=== PATIENT | female | born 1995 | race Caucasian/White ===

== ENCOUNTER 2017-12-16 14:44 | Outpatient (CLI) | payer OTHER | END 2017-12-16 15:12 | disposition home or self-care (01) | LOC: LAB 14:44 | DX: N39.0 Urinary tract infection, site not specified (principal); R82.79 Other abnormal findings on microbiological examination of urine ==

== ENCOUNTER → 2017-12-16 | Outpatient (CLI) | payer OTHER ==
[~2017-12-16] VITALS: Ht 152.4 cm; Wt 59.0 kg
[~2017-12-16] MED LIST: ADVIL100 M1
== END | disposition home or self-care (01) ==
LOC: PPHC 13:33
DX: N39.0 Urinary tract infection, site not specified (principal)

== ENCOUNTER 2018-12-31 12:24 | Emergency (ER) | payer OTHER ==
[~2018-12-31] VITALS: Ht 160 cm; Wt 59.0 kg
[2018-12-31] MEDS ORDERED: ZOLOFT100 MG (12:34)
== END 2018-12-31 16:26 | disposition home or self-care (01) ==
LOC: ER 12:24
DX: B34.9 Viral infection, unspecified (principal)

== ENCOUNTER 2020-08-29 09:35 | Outpatient (CLI) | payer OTHER ==
[~2020-08-29 09:35] MED LIST changes: +ZOLOFT100 MG
== END 2020-08-29 09:44 | disposition home or self-care (01) ==
LOC: RAD 09:35
PROVIDERS: ATTEND Orthopaedic Surgery
DX: S60.212A Contusion of left wrist, initial encounter (principal); M25.532 Pain in left wrist

== ENCOUNTER 2022-10-16 17:56 | Emergency (ER) | payer OTHER ==
[~2022-10-16] VITALS: Ht 160 cm; Wt 61.2 kg
== END 2022-10-16 21:23 | disposition left against medical advice (07) ==
LOC: ER 17:56
DX: H66.92 Otitis media, unspecified, left ear (principal); Z20.822 Contact with and (suspected) exposure to COVID-19